=== PATIENT | male | born 1985 | race Caucasian/White ===

== ENCOUNTER 2024-03-16 13:03 | Emergency (ER) | payer MEDICAID, SELFPAY ==
[2024-03-16 13:04] VITALS: BP 122/85; PULSE 70; RESP 18; TEMP 36.3; O2SAT 100; BMI 29.9
[2024-03-16 14:03] VITALS: BP 119/79; PULSE 80; RESP 16
--- NOTE | 2024-03-16 14:09 | EKG12_ITS ---
Test Reason : WEAKNESS Blood Pressure : */* mmHG Vent. Rate : 72 BPM Atrial Rate : 72 BPM P-R Int : 162 ms QRS Dur : 76 ms QT Int : 376 ms P-R-T Axes : 9 42 27 degrees QTcB Int : 411 ms Normal sinus rhythm Normal ECG Confirmed by ALESSANDRO GARCIA, ELADIO ([id number]), international editorial producer FRAN CHA ([id number]) on 03/18/2024 2:16:12 PM Referred By: Confirmed By: ELADIO FRANCOIS MD
--- NOTE | 2024-03-16 14:16 | ED.VIS.CHEST ---
HPI History of Present Illness Chief Complaint: Palpitations Informant: patient Onset/Context/Timing Onset: Today Activity at onset: sudden Timing: Continuous Current Severity: Gone Maximum Severity: Moderate Worsened By: Nothing Relieved By: Nothing Narrative Narrative: 38-year-old male no seen past medical or surgical history. Currently on no medications. Today was driving and he [place] a cold sweat and he felt palpitations. Had a sensation like he might pass out but never lost consciousness. It is resolved now. An episode like this about 7 years ago said he underwent testing but they never found a specific cause. He is currently feeling a lot better. He denies any chest pain or shortness of breath. He denies any recent illness. He has no cardiac history. Prior Similar Symptoms: Yes Recent Illness/Hospitalization: No CVD Risk Factors: Negative for Hypertension, Diabetes or Hypercholesterolemia PE Risk Factors: Negative for Recent Travel/Surgery, Recent Immobilization, Prior DVT or PE, Cancer or OCP + Smoking + >/=35 TAD Risk Factors: Negative for Marfan's Syndrome PFSH PFSH Medical History no medical history Home Medications ?Medication ?Instructions ?Recorded ?Last Taken ?Type famotidine 20 mg tablet 20 mg PO BID ##28 09/29/15 Unknown Rx Allergy/AdvReac Type Severity Reaction Status Date / Time No Known Allergies Allergy Verified 03/16/24 13:04 Surgical History no surgical history Social History Smoking Status: Current every day smoker tobacco type: cigarettes ROS ROS ED ROS Narrative Denies recent illness. Constitutional Constitutional ED: Denies chills or fever(s) Eyes Eyes: Reports none ENT ENT ED: Denies ear pain Cardiovascular Cardiovascular: Reports as per HPI and palpitations; Denies chest pain or racing heartbeat Respiratory/Chest Respiratory/Chest: Denies cough or dyspnea Gastrointestinal Gastrointestinal: Denies abdominal pain Genitourinary Genitourinary ED: Denies dysuria or hematuria Musculoskeletal Musculoskeletal: Denies arthralgias, back pain, myalgias or neck pain Integumentary Denies abscess, Abrasions or rash Neurologic Neurologic: Denies headache(s) Psychiatric Psychiatric: Denies anxiety or depression Endocrine Endocrinology: Denies cold intolerance Hematologic/Lymphatic Hematologic/Lymphatic: Denies easy bleeding, easy bruising or lymphadenopathy Allergic/Immunologic Allergic/Immunologic ED: Denies mouth swelling, tongue swelling or urticaria EXAM Physical Exam Narrative Exam Narrative: Well-appearing 38-year-old male. Vital signs stable afebrile. Pulse ox 100% on room air no signs of hypoxia. Currently symptom-free. Clinically looks well. H EENT exam unremarkable. Pupils round react to light. Neck nontender no thyromegaly. No lymphadenopathy. Lungs clear to auscultation bilaterally. Heart regular rhythm rate about 75 no murmur. Chest wall and ribs nontender. Abdomen soft nontender. Moving all 4 extremities. 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 Equal symmetrical radial pulses. Dorsi plantarflexion intact. Calves are nontender without edema or cords. Neurologically is awake and alert no focal motor deficits. Answering questions following commands. Const Vital Signs: 03/16/24 13:04 03/16/24 13:17 03/16/24 14:03 Temperature 97.3 F L Temperature Source Temporal Pulse Rate 70 80 Respiratory Rate 18 16 Respiratory Pattern Normal Blood Pressure 122/85 H 119/79 Blood Pressure Mean 97 92 Pulse Ox 100 Oxygen Delivery Method Room Air 03/16/24 14:09 03/16/24 15:00 Temperature Temperature Source Pulse Rate 70 Respiratory Rate 15 Respiratory Pattern Blood Pressure 121/79 H Blood Pressure Mean 93 Pulse Ox 97 Oxygen Delivery Method Room Air Room Air Positive well nourished and well developed; Negative for cachectic, contractures or unkempt General Appearance ED: well developed and NAD; Negative for unkempt, cachectic, contractures or pallor Nutritional Appearance: Negative for cachectic HEENT Reports moist mucous membranes normocephalic and atraumatic; Negative for trauma or tenderness Eyes PERRL and EOMs intact bilaterally General Eye ED: Negative for pale conjunctiva or scleral icterus Neck no lymphadenopathy, supple and no JVD General: Negative for tenderness Chest Wall inspection of chest normal and palpation of chest normal Chest: Negative for tenderness Resp normal respiratory effort and clear to auscultation bilaterally Effort and Inspection: Negative for respiratory distress Auscultation: Negative for rales, rhonchi, wheezes or diminished lung sounds Cardio regular rate, regular rhythm, S1 normal heart sound, S2 normal heart sound and no murmurs Rate: Negative for bradycardia or tachycardic Rhythm: Negative for abnormal rhythm Peripheral Pulses: pulses 2+ throughout GI normal to inspection, nondistended, normoactive bowel sounds, soft to palpation, non-tender, non-distended and no masses Back/Spine no CVA tenderness and no thoracic nor lumbar tenderness Extremity normal to inspection General Extremety ED: Negative for edema, pulses abnormal or tenderness General Extremity: Negative for edema or pulses abnormal Neuro oriented x3 and CN's II-XII intact bilaterally Sensorium / Orientation: awake, alert, oriented to person, oriented to place and oriented to time; Negative for confused, lethargic or stuporous Motor Exam: strength 5/5 throughout Psych mental status grossly normal Appearance: Negative for unkempt Attitude: No agitated Mood & Affect: Negative for depressed, anxious or tearful Skin no rashes or lesions noted and no wounds General Skin Exam: Negative for jaundice or pallor Rashes: No rashes noted Trauma: Negative for abrasion MDM MDM MDM Narrative Medical decision making narrative: 38-year-old male with palpitations and near syncope. Currently exam is normal. Similar episode about 7 years ago without diagnosis. Will undergo cardiac workup. Differential would include dysrhythmia that is resolved., Anemia electrolyte abnormalities etc. Repeat exam patient is doing well. At 3:42 PM. Exam unchanged. Looks and feels well. We discharged home palpitations near syncope uncertain etiology. He has worn a secured entrance monitor before he said he never found anything. He will follow-up with his primary care physician. History & Record Review Discussion w/independent historian: Patient Lab Data Attestation: I reviewed the patient's lab results. Lab results narrative: CBC normal. White count 9. H&H is 16 and 49. Platelets 256. Electrolytes show gap 4. Normal BUN of 17 creatinine 1.1. Glucose 139. Troponin less than 3. Chest x-ray unremarkable as is EKG. Labs: Laboratory Results - last 24 hr 03/16/24 13:14 WBC 9.3 RBC 5.67 Hgb 16.6 H Hct 49.5 MCV 87.3 MCH 29.3 MCHC 33.5 RDW Std Deviation 41.1 RDW Coeff of Rudy 13.0 Plt Count 256 MPV 10.0 Immature Gran % (Auto) 0.300 Neut % (Auto) 60.7 Lymph % (Auto) 28.3 Norton % (Auto) 7.8 Eos % (Auto) 2.1 Baso % (Auto) 0.8 Absolute Neuts (auto) 5.6 Absolute Lymphs (auto) 2.62 Nucleated RBC % 0 Sodium 137 Potassium 3.8 Chloride 106 Carbon Dioxide 28.0 Anion Gap 4 L BUN 17 Creatinine 1.11 Estim Creat Clear Calc 108.36 Est GFR (MDRD) Af Amer 96 Est GFR (MDRD) Non-Af 79 BUN/Creatinine Ratio 15.3 Glucose 139 H Calcium 9.4 Troponin I High Sens < 3 L Radiography Chest X-Ray - ED: 1 View, Read by ED Physician, Read by Radiologist, Heart, Lungs, Mediastinum, Bony Structures, No Acute Disease and Chronic Changes Diagnostic Testing: Clinical Impression(s) from Imaging Studies Chest X-Ray 03/16/24 14:21 IMPRESSION: No radiographic evidence of acute cardiopulmonary disease. Electronically Signed: Mo Rodriguez DO at 14:45 EST Reading Location ID and State: [facility] / [place] Tel [phone], Service support , Chest x-ray, portable, single view interpreted by myself and the radiologist shows no acute abnormality. Normal cardiac silhouette. Normal mediastinum. Normal lung macias. Rhythm Strip Rhythm Strip: Sinus Rhythm Rate: 72 Ectopy: None EKG Initial EKG: Attestation: I personally reviewed and interpreted this EKG as follows: Interpretation: Sinus Rhythm and No Acute Injury Pattern Comments: Normal sinus rhythm rate of 72 no acute signs of GA or ischemia. Discharge Plan Triage Chief Complaint: Palpitations ED Provider: Wander Zamora Dx/Rx/DC Orders Clinical Impression: Palpitation, Near syncope Instructions: ED Palpitations Prescriptions: No Action famotidine 20 MG tablet 20 mg PO BID Qty: 28 0RF Primary Care Provider: Care Physician,No Primary Referrals: Care Physician,No Primary [Primary Care Provider] - Activity Restrictions/Additional Instructions: Follow-up with your doctor for possible further evaluation. All your tests today were normal as was your exam. Print Language: Kazakh Disposition Disposition: Home, Self Care
--- NOTE | 2024-03-16 14:21 | RAD_ITS ---
INDICATION: chest pain EXAMINATION/TECHNIQUE: X-RAY - XR Chest 1 View COMPARISON: September 12, 2016 FINDINGS: LINES/DEVICES: None. LUNGS: No consolidation, edema or effusion. No pneumothorax. MEDIASTINUM AND CARDIOVASCULAR STRUCTURES: Cardiac silhouette not enlarged. Central airways and mediastinal contour are unremarkable. BONES AND SOFT TISSUES: Unremarkable. RAD/Chest 1 View (Portable) IMPRESSION: No radiographic evidence of acute cardiopulmonary disease. Electronically Signed: Mo Rodriguez DO at 14:45 EST ,
[2024-03-16 14:26] LABS: Absolute Lymphocyte Count 2.62 X10^3/uL (0.83-4.51); Absolute Neutrophil Count 5.6 X10^3/uL (2.0-7.7); Basophil# 0.07 X10^3/uL; Basophil% 0.8 % (0-1); Eosinophil# 0.19 X10^3/uL; Eosinophils% 2.1 % (0-5); Hematocrit 49.5 % (40-54); Hemoglobin 16.6 g/dL (13.0-16.5); Lymphocyte # 2.62 X10^3/ul (0.83-4.51); Lymphocyte % 28.3 % (19-41); Mean Corp Hgb Conc 33.5 g/dL (32-36); Mean Corpuscular Hgb 29.3 pg (27.0-32.0); Mean Corpuscular Volume 87.3 fL (80-94); Monocyte# 0.72 X10^3/uL; Monocyte% 7.8 % (0-10); NRBC Flagged by Analyzer 0 % (0-5); Neutrophil # 5.62 X10^3/uL (2.7-7.7); Neutrophil % 60.7 % (47-70); Platelet Count 256 K/mm3 (150-450); RBC Distribution Width SD 41.1 fl (35.1-43.9); Red Blood Count 5.67 M/mm3 (4.6-6.2); White Blood Count 9.3 K/mm3 (4.4-11.0)
[2024-03-16 14:55] LABS: Anion Gap 4 (5-15); BUN 17 mg/dL (7-18); BUN/Creat Ratio 15.3 RATIO (10-20); Calcium,Total 9.4 mg/dL (8.5-10.1); Chloride 106 mmol/L (98-107); Creatinine, Serum 1.11 mg/dL (0.70-1.30); EST Glomerular Filtration Rate 79 mL/min (>60); Est Glom Filt Rate - Afr Amer 96 mL/min (>60); Estimated Creatinine Clearance 108.36 ml/min; Glucose 139 mg/dL (74-106); Potassium 3.8 mmol/L (3.5-5.1); Sodium Level 137 mmol/L (136-145); Troponin-I HS < 3 pg/mL (3.0-78.0)
[2024-03-16 15:00] VITALS: BP 121/79; PULSE 70; RESP 15; O2SAT 97
[2024-03-16 15:58] VITALS: BP 101/62; PULSE 75
== END 2024-03-16 15:58 | disposition home or self-care (01) ==
PROVIDERS: Emergency Provider Emergency Medicine; Visit Provider Emergency Medicine
DX: R00.2 Palpitations (principal); R55 Syncope and collapse; F17.210 Nicotine dependence, cigarettes, uncomplicated
CPT/HCPCS: 71045; 80048; 84484; 85025; 93005; 99284